=== PATIENT | male | born 1990 | race Caucasian/White ===

== ENCOUNTER 2019-11-22 19:26 | Emergency (ER) | payer SELFPAY ==
[~2019-11-22] VITALS: Ht 188 cm; Wt 68.2 kg
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
[2019-11-22] MEDS ORDERED: ACETAMINOPHEN 500 MG TABLET PO ONE (20:00)
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
[2019-11-22] MEDS ORDERED: CONTRAST GIVEN. MC PRN (22:15)
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
[2019-11-22] MEDS ORDERED: IOHEXOL 300 MG/ML 100ML VIAL. IV ONE (22:30)
[2019-11-22] MEDS ORDERED: IOHEXOL 350 MG/ML 100 ML VIAL. IV ONE (23:00)
[2019-11-22] MEDS ORDERED: DIPH,PERTUSS(ACELL),TET VAC/PF 0.5 ML SYRINGE. VAX IM ONE (23:00)
[2019-11-22 23:17] VITALS: BP 110/67
--- NOTE | 2019-11-22 23:28 | RAD ---
INDICATION: Reason: left elbow swelling / Spl. Instructions: / History: COMPARISON: None. IMPRESSION: Left elbow: 3 views obtained. No evidence of acute fracture or dislocation. There is some soft tissue swelling. Electronically signed by: Michele Monaco MD (11/22/2019 11:25 PM) [id number]
== END 2019-11-22 23:20 | disposition home or self-care (01) ==
LOC: ER 19:26
DX: S30.811A Abrasion of abdominal wall, initial encounter (principal); M79.10 Myalgia, unspecified site; M25.522 Pain in left elbow; V00.131A Fall from skateboard, initial encounter; Y93.89 Activity, other specified; Y92.89 Other specified places as the place of occurrence of the external cause; Y99.8 Other external cause status
CPT/HCPCS: 70450; 71275; 72125; 73080; 74174; 90471; 90715; 99285; Q9967